=== PATIENT | male | born 1980 | race Caucasian/White ===

== ENCOUNTER 2020-04-15 07:20 | Outpatient (REF) | payer BC, SELFPAY | END 2020-04-15 07:21 | disposition home or self-care (01) | LOC: HO.LAB 07:20 | PROVIDERS: Visit Provider Internal Medicine | DX: Z20.822 Contact with and (suspected) exposure to COVID-19 (principal) | CPT/HCPCS: 36415; C9803; U0003 ==

== ENCOUNTER 2020-04-25 07:22 | Outpatient (REF) | payer BC, SELFPAY | END 2020-04-25 07:23 | disposition home or self-care (01) | LOC: HO.LAB 07:22 | PROVIDERS: Visit Provider Internal Medicine | DX: Z20.822 Contact with and (suspected) exposure to COVID-19 (principal) | CPT/HCPCS: 36415; C9803; U0003 ==

== ENCOUNTER 2021-03-02 10:38 | Outpatient (REF) | payer BC, SELFPAY ==
[2021-03-02 11:03] LABS: COVID-19 Test Negative (Negative)
== END 2021-03-02 10:39 | disposition home or self-care (01) ==
LOC: HO.LAB 10:38
PROVIDERS: Visit Provider Internal Medicine
DX: Z20.822 Contact with and (suspected) exposure to COVID-19 (principal)
CPT/HCPCS: 36415; 87635; C9803